=== PATIENT | male | born 1955 | race Caucasian/White ===

== ENCOUNTER 2023-06-16 10:59 | Emergency (ER) | payer MEDICARE, SELFPAY ==
[2023-06-16 11:04] VITALS: BP 131/95; BMI 29.9
[2023-06-16 12:28] LABS: COVID-19 Antigen Negative (Negative)
[2023-06-16] MEDS: DECADRON 10 MG PO (12:57)
[2023-06-16] MEDS: DUONEB 3 ML INH (12:57)
[2023-06-16 14:30] VITALS: BP 118/79
--- NOTE | 2023-06-16 15:50 | ED.GENMED ---
History of Present Illness
General
Chief Complaint: Cold/Flu/URI Symptoms
Source: patient and family
Exam Limitations: none
Time Seen by Provider: 06/16/23 12:11
Nursing documentation reviewed up to this point in time: agreed with
Travel History
Have you had any contact with someone who has COVID-19?: No
Do you have any symptoms of coronavirus? Fever > 100 degrees, chills, cough, shortness of breath, sore throat, loss of taste or smell, muscle aches, or headache?: No
History of Present Illness
History of Present Illness:
68-year-old male with Hanane history of hypertension presenting to the emergency department today with concerns of shortness of breath wheezing chills intermittently over the past few days. Mild symptoms at this point with a mild cough. Denies
significant ongoing chest pain or shortness of breath at this moment.
Review of Systems
Review of Systems
Allergies reviewed?: Yes
All Other Systems: ROS reviewed and negative except as documented in HPI and ROS
Phy Exam
Physical Exam
Physical Exam:
GENERAL: Alert , in no apparent distress
EYE: pupils equal and reactive
NECK: Supple, no significant adenopathy.
ENT: o/p clr, mmm.
CARDIAC: Regular rate and rhythm .
LUNGS: Very slight end expiratory wheeze diffusely in a right-sided lower lobe vague rales.
ABDOMEN: Soft, without focal tenderness, no r/g, no cvat
NEUROLOGICAL: Alert and oriented, no focal neuro deficits
SKIN: Warm and dry, skin intact.
MUSCULOSKELETAL: No edema, well perfused.
PSYCH: Normal and appropriate interaction.
Course
Orders/Labs/Results
Orders:
Orders
06/16/23 11:48
COVID-19 Antigen Urgent
Source: Nasal Swab
Influenza A+B Rapid Molecular Urgent
TERESA Source: Nasal Swab
Specimen Description:
06/16/23 12:47
EKG [Electrocardiogram (*1)] Urgent
Reason for Study: Shortness of Breath
EKG- Treatment ONCE
Dexamethasone [Decadron] 10 mg PO NOW STA
Ipratropium/Albuterol Sulfate [Duoneb] 3 ml INH R NOW ONE
Chest [CR Chest - 2 Views ] Urgent
Comment:
Reason For Exam: cough
Vital Signs
Initial and Last Documented VS:
Initial Vital Signs
Temp Pulse Resp BP Pulse Ox
97.6 F 84 16 131/95 99
06/16/23 11:04 06/16/23 11:04 06/16/23 11:04 06/16/23 11:04 06/16/23 11:04
Last Documented Vital Signs
Temp Pulse Resp BP Pulse Ox
97.7 F 85 18 118/79 95
06/16/23 14:30 06/16/23 14:30 06/16/23 14:30 06/16/23 14:30 06/16/23 14:30
MDM/Problems Addressed
MDM/Problems Addressed:
68-year-old male presenting to the emergency department today with concerns of event chills cough shortness of breath over the past few days. Upon arrival patient does have adventitious sounds with a very slight end expiratory wheeze diffusely and
right lower lobe Rales. Potentially consistent with early pneumonia. Concerning his concerns of intermittent subjective fever patient started on antibiotic and also given medication to help with wheezing he claims he felt much better after
treatment with normal vital signs throughout ER stay stable for outpatient management return precautions given.
*Critical Care Note
Total Time (30-74mins, 75-104mins- exclusive of procedures): Not Applicable
ED Attending Note
-
Portions of this chart may have been created with voice recognition software.� Occasional wrong word or��sound alike� substitutions may have occurred due to the inherent limitations of voice recognition software.
Discharge Plan
Departure
Patient Disposition: Home (Routine Discharge)
Date of Disposition: 06/16/23
Time of Disposition: 15:50
Patient with high blood pressure during this ER visit?: No
Condition: Good
Covid-19: Not Applicable
Discharge Problem:
Pneumonia, Wheeze
Instructions: Pneumonia, Adult (DC)
Prescriptions:
New
prednisone 20 mg tablet
40 mg PO DAILY 4 Days Qty: 8 0RF
doxycycline hyclate 100 mg tablet
100 mg PO BID 7 Days Qty: 14 0RF
albuterol sulfate 90 mcg/actuation aerosol powdr breath activated
2 inh inhalation QID PRN (Reason: shortness of breath) Qty: 1 0RF
Referrals:
Jett Rees MD [Family Provider] -
Activity Restrictions/Additional Instructions:
You came to the emergency department today with concerns of shortness of breath intermittent chills. Here it appears he may have a consolidation on chest x-ray that could be consistent with pneumonia. Please take doxycycline twice daily for the
next week as well as take prednisone 40 mg once daily for the next 4 days for reactive airway. He can also use the inhaler as needed over the next few days. Please follow close with your primary care doctor. Return to the emergency department for
any worsening, new or concerning symptoms.
Interventions
Interventions:
*Risk Screen - Suicide Last Done: 06/16/23 11:04
*Neglect/Abuse Screening Last Done: 06/16/23 11:04
ED- Fall Risk Assessment Last Done: 06/16/23 11:04
*ED COVID-19 Vaccine History Last Done: 06/16/23 11:04
ED- Pulmonary Assessment Last Done: 06/16/23 14:42
Discharge Date and Time
Print Language: SLOVENIAN
[2023-06-16] MEDS: VIBRAMYCIN 100 MG PO (16:01)
== END 2023-06-16 16:27 | disposition home or self-care (01) ==
LOC: EMR 10:59
PROVIDERS: EMERGENCY PHYSICIAN Student in an Organized Health Care Education/Training Program; FAMILY PHYSICIAN Internal Medicine
DX: J18.9 Pneumonia, unspecified organism (principal); R06.2 Wheezing; I10 Essential (primary) hypertension
CPT/HCPCS: 99285; 94640; 71046; 87502; 87811; 93005